=== PATIENT | female | born 1955 | race Caucasian/White ===

== ENCOUNTER 2021-08-06 12:05 | Outpatient (CLI) | payer BC | END 2021-08-06 12:06 | disposition home or self-care (01) | LOC: CSHMAMMO 12:05 | PROVIDERS: ATTEND Family Medicine | DX: Z12.31 Encounter for screening mammogram for malignant neoplasm of breast (principal) | CPT/HCPCS: 77063; 77067 ==

== ENCOUNTER 2022-10-05 10:07 | Outpatient (CLI) | payer BC | END 2022-10-05 10:08 | disposition home or self-care (01) | LOC: CSHMAMMO 10:07 | PROVIDERS: ATTEND Family Medicine | DX: Z12.31 Encounter for screening mammogram for malignant neoplasm of breast (principal) | CPT/HCPCS: 77063; 77067 ==

== ENCOUNTER 2023-12-26 11:23 | Outpatient (CLI) | payer OTHER | END 2023-12-26 11:24 | disposition home or self-care (01) | LOC: CSHMAMMO 11:23 | PROVIDERS: ATTEND Family Medicine | DX: Z12.31 Encounter for screening mammogram for malignant neoplasm of breast (principal) | CPT/HCPCS: 77063; 77067 ==

== ENCOUNTER 2024-10-08 10:17 | Emergency (ER) | payer BC | END 2024-10-08 11:19 | disposition home or self-care (01) | LOC: CSHERS 10:17 | DX: S76.091A Other specified injury of muscle, fascia and tendon of right hip, initial encounter (principal); E11.9 Type 2 diabetes mellitus without complications; E78.5 Hyperlipidemia, unspecified; F41.8 Other specified anxiety disorders; E05.90 Thyrotoxicosis, unspecified without thyrotoxic crisis or storm; W01.0XXA Fall on same level from slipping, tripping and stumbling without subsequent striking against object, initial encounter; Z55.0 Illiteracy and low-level literacy | CPT/HCPCS: 72170; 99283 ==